=== PATIENT | female | born 1970 | race Caucasian/White ===

== ENCOUNTER 2019-02-09 12:47 | Emergency (ER) | payer MEDICAID ==
[~2019-02-09] VITALS: Ht 152.4 cm; Wt 63.5 kg
--- NOTE | 2019-02-09 12:52 | NUR ---
"PALPITATIONS, ANXIETY, DIZZY S/P ACCIDENTAL INGESTION OF THC GUMMIES, 25MG" PT ALERT, AWAKE, PT ON MONITOR, VSS, NAD NOTED, PENDING MD MORENO
[2019-02-09 13:11] LABS: BASOPHILS # (AUTO) 0.1 /CMM (0.0-0.2); BASOPHILS % (AUTO) 0.7 % (0.0-2.0); EOSINOPHILS % (AUTO) 1.3 % (0.0-6.0); HEMATOCRIT 39 % (33-45); HEMOGLOBIN 13.6 g/dL (11.5-14.8); LYMPHOCYTES # (AUTO) 3.9 /CMM (0.8-4.8); MEAN CORPUSCULAR HGB CONC 35 g/dl (31.0-36.0); MEAN CORPUSCULAR VOLUME 88 fL (82-100); MONOCYTES # (AUTO) 0.6 /CMM (0.1-1.30); MONOCYTES % (AUTO) 5.6 % (2.0-12.0); NEUTROPHILS # (AUTO) 5.3 /CMM (1.8-8.9); NEUTROPHILS % (AUTO) 53.4 % (43.0-81.0); PLATELET COUNT (AUTO) 346 /CMM (150-450); RED BLOOD CELL COUNT(AUTO) 4.45 MIL/uL (4.0-5.2); WHITE BLOOD COUNT (AUTO) 9.9 K/uL (4.3-11.0)
[2019-02-09] MEDS ORDERED: LORAZEPAM INJ 2 MG/ML VIAL ONE (13:15)
[2019-02-09 13:19] LABS: CALCIUM, SERUM 8.7 mg/dL (8.5-10.1); CREATININE 0.7 mg/dL (0.6-1.3); POTASSIUM 3.1 mmol/L (3.5-5.1)
[2019-02-09] MEDS ORDERED: IV NS 0.9% 1,000 ML BAG IV ONE (13:30)
[2019-02-09] MEDS ORDERED: LORAZEPAM INJ 2 MG/ML VIAL IVP ONE (13:30)
[2019-02-09 13:31] LABS: ALBUMIN 3.9 g/dL (3.4-5.0); BILIRUBIN,DIRECT 0.1 mg/dL (0.0-0.2); BILIRUBIN,TOTAL 0.8 mg/dL (0.2-1.0); TOTAL PROTEIN, SERUM 7.4 g/dL (6.4-8.2)
--- NOTE | 2019-02-09 17:22 | NUR ---
Patient discharged to home in stable condition. Written and verbal after care instructions given. Patient verbalizes understanding of instruction. IV removed. Catheter intact and site benign. Pressure and 4x4 applied to site. No bleeding noted.
[2019-02-09 17:26] VITALS: BP 101/75
== END 2019-02-09 17:27 | disposition home or self-care (01) ==
LOC: ER 12:54
DX: F12.929 Cannabis use, unspecified with intoxication, unspecified (principal); R42 Dizziness and giddiness; E11.9 Type 2 diabetes mellitus without complications; Z60.2 Problems related to living alone
CPT/HCPCS: 36415; 80048; 80076; 85025; 93005; 96361; 96374; 99284; J2060; J7030